=== PATIENT | male | born 1980 | race Caucasian/White ===

== ENCOUNTER 2017-05-11 12:27 | Emergency (ER) | payer OTHER ==
[~2017-05-11] VITALS: Ht 195.6 cm; Wt 108.2 kg
[2017-05-11 12:29] VITALS: TEMP 36.6; Ht 195.6 cm; Wt 108.2 kg
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
[2017-05-11 13:57] VITALS: O2SAT 99
[2017-05-11 13:58] LABS: BASO % 0.2 %; BASO ABS # 0.02 K/uL (0-0.2); COMPLETE YES; EOS % 0.6 %; HEMATOCRIT 47.1 % (42-52); IG% 0.1 %; LYMPH % 27.6 %; LYMPH ABS # 2.51 K/uL (1.2-3.4); MEAN CELL VOLUME 88.2 fL (80-100); MEAN CORPUSCULAR HGB CONC 36.3 g/dl (32-36); MEAN PLATELET VOLUME 11.4 fL (7.4-10.4); NEUT % 63.5 %; PLATELET COUNT 226 K/uL (130-400); RED BLOOD COUNT 5.34 M/uL (4.7-6.1); WHITE BLOOD COUNT 9.09 K/uL (4.8-10.8)
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
[2017-05-11 14:15] LABS: BUN/CREATININE RATIO 11.6 (10-20); CALCIUM 9.4 mg/dl (8.5-10.1); CREATININE 1.1 mg/dl (0.60-1.40)
[2017-05-11 14:18] LABS: ALB/GLOB RATIO 1.2 (0.9-2)
[2017-05-11 14:21] VITALS: BP 166/92; PULSE 80; O2SAT 99
== END 2017-05-11 14:22 | disposition short-term general hospital (02) ==
LOC: C.EDB 12:28 → C.EDA 14:22
DX: S06.2X9A Diffuse traumatic brain injury with loss of consciousness of unspecified duration, initial encounter (principal); V43.52XA Car driver injured in collision with other type car in traffic accident, initial encounter